=== PATIENT | male | born 1965 | race Caucasian/White ===

== ENCOUNTER 2018-07-09 00:27 | Observation (INO) ==
--- NOTE | 2018-07-09 01:12 | XR ---
EXAM DATE: 07/09/2018 1:05 AM EST AGE/SEX: 52 years / Male INDICATIONS: Chest pressure and palpitations today. CLINICAL DATA: This is the patient's initial encounter. Patient reports that signs and symptoms have been present for 1 day and indicates a pain score of 2/10. MEDICAL/SURGICAL HISTORY: None. None. COMPARISON: No prior exams available for comparison. FINDINGS: A single AP view of the chest demonstrates the lungs to be symmetrically aerated without evidence of mass, infiltrate or effusion. The cardiomediastinal contours are unremarkable. Osseous structures a re intact. CONCLUSION: Negative examination. Electronically signed by: Mik Adame MD 07/09/2018 1:10 AM EST
[2018-07-09 01:14] LABS: Baso % (Auto) 0.5 % (0.0-2.0); Eos # (Auto) 0.1 th/mm3 (0.0-0.4); Eos % (Auto) 1.3 % (0.0-4.0); Hematocrit 43.9 % (39.0-51.0); Hemoglobin 14.9 gm/dL (13.0-17.0); Lymph # (Auto) 2.7 th/mm3 (1.0-4.8); Lymph % (Auto) 32.6 % (9.0-44.0); Mean Corpuscular HGB Conc 33.9 % (32.0-36.0); Mean Corpuscular Hemoglobin 29.6 pg (27.0-34.0); Mean Corpuscular Volume 87.4 fL (80.0-100.0); Mean Platelet Volume 7.7 fL (7.0-11.0); Mono # (Auto) 0.8 th/mm3 (0.0-0.9); Mono % (Auto) 9.1 % (0.0-8.0); Neut # (Auto) 4.7 th/mm3 (1.8-7.7); Neut % (Auto) 56.5 % (16.0-70.0); Platelet Count 226 th/mm3 (150-450); Red Blood Count 5.02 mil/mm3 (4.50-5.90); Red Cell Distribution Width 13.4 % (11.6-17.2); White Blood Count 8.4 th/mm3 (4.0-11.0)
[2018-07-09 01:35] LABS: Alkaline Phosphatase 83 U/L (45-117); Total Protein 8.1 g/dL (6.4-8.2)
[2018-07-09 01:36] LABS: Alanine Aminotransferase 108 U/L (12-78); Albumin 4.1 g/dL (3.4-5.0); Anion Gap 5 meq/L (5-15); Aspartate Aminotransferase 94 U/L (15-37); Blood Urea Nitrogen 18 mg/dL (7-18); Calcium 8.9 mg/dL (8.5-10.1); Carbon Dioxide 29.8 meq/L (21.0-32.0); Chloride 106 meq/L (98-107); Glomerular Filtration Rate 55 mL/min (>89); Glucose,Random 121 mg/dL (74-106); Potassium 3.6 meq/L (3.5-5.1); Sodium 141 meq/L (136-145)
[2018-07-09 01:57] LABS: Bilirubin,Urine Negative (Negative); Clarity,Urine Clear (Clear); Color,Urine Straw (Yellw/Straw); Glucose,Urine (UA) Negative (Negative); Leukocyte Esterase,Urine Negative (Negative); Nitrite,Urine Negative (Negative); Specific Gravity,Urine 1.003 (1.002-1.035)
--- NOTE | 2018-07-09 03:06 | ED ---
HPI General Chief Complaint: Arrhythmia / Palpitations Stated Complaint: Chest Pians/Chills Time Seen by Provider: 07/09/18 00:59 Source: patient and family () Mode of arrival: ambulatory Limitations: no limitations History of Present Illness HPI narrative: 52-year-old male came to the emergency room with history of sudden onset palpitation when he woke up at midnight to go to the bathroom. He also started getting chills and was shaking. He asked his to take him to the emergency room. The symptoms lasted for 20 minutes and resolved by the time they came to the emergency room. No history of dizziness or lightheadedness. No history of syncopal episode or shortness of breath. Patient has never experienced this kind of symptom before. He had slight chest discomfort with the symptoms. Patient is not on any medications on a daily basis but occasionally takes Motrin and Claritin-D. Patient had taken Claritin- D yesterday. Vital signs are stable currently. Patient is chest pain-free. No aggravating or relieving symptoms identified. Related Data Home Medications Medication Instructions Recorded Confirmed No Known Home Medications 07/09/18 07/09/18 Allergies Allergy/AdvReac Type Severity Reaction Status Date / Time No Known Allergies Allergy Verified 07/09/18 00:33 Review of Systems ROS: all other systems reviewed are negative [facility] Medical History Medical History Patient denies medical problems (Acute) Surgical History Surgical History No history of previous surgery (Acute) Social History Social History Substance History: No History of Abuse Second Hand Smoke Exposure: No Smoking Status: Never smoker How Often Do You Have a Drink Containing Alcohol: 2 to 3 times a week Recent Travel in [facility] within the Last 8 Weeks: No Recent Out of Country Travel within the Last 8 Weeks: No Immunization History Tetanus Immunization: >5 Years Exam Narrative Exam Narrative: GENERAL: Awake, alert, no obvious distress SKIN: Focused skin assessment warm/dry. HEAD: Atraumatic. Normocephalic. EYES: Pupils equal and round. No scleral icterus. No injection or drainage. ENT: No nasal bleeding or discharge. Mucous membranes pink and moist. NECK: Trachea midline. No JVD. CARDIOVASCULAR: Regular rate and rhythm. No murmur appreciated. RESPIRATORY: No accessory muscle use. Clear to auscultation. Breath sounds equal bilaterally. GASTROINTESTINAL: Abdomen soft, non-tender, nondistended. Hepatic and splenic margins not palpable. MUSCULOSKELETAL: No obvious deformities. No clubbing. No cyanosis. No edema. NEUROLOGICAL: Awake and alert. No obvious cranial nerve deficits. Motor grossly within normal limits. Normal speech. PSYCHIATRIC: Appropriate mood and affect; insight and judgment normal. Course Initial Documented Vital Signs Temperature 98.2 F 07/09/18 00:33 Pulse Rate 81 07/09/18 00:33 Respiratory Rate 16 07/09/18 00:33 Blood Pressure 158/90 H 07/09/18 00:33 Pulse Oximetry 100 07/09/18 00:33 Last Documented Vital Signs Temperature 98.0 F 07/09/18 08:00 Pulse Rate 69 07/09/18 08:00 Respiratory Rate 16 07/09/18 08:00 Blood Pressure 122/84 07/09/18 08:00 Pulse Oximetry 99 07/09/18 08:00 Medical Decision Making MDM Narrative Medical decision making narrative: 3:04 AM blood test results are back and within normal limits. 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 I will admit the patient to the chest pain center so that he can be evaluated for his chest pressure that was associated with the arrhythmia and ACS can be ruled out. Medical Screen Exam Complete: Yes Emergency Medical Condition: Yes Lab Data Result diagrams: 07/09/18 00:50 07/09/18 00:50 Lab Results 07/09/18 07/09/18 07/09/18 Range/Units 00:50 00:50 01:30 WBC 8.4 (4.0-11.0) th/mm3 RBC 5.02 (4.50-5.90) mil/mm3 Hgb 14.9 (13.0-17.0) gm/dL Hct 43.9 (39.0-51.0) % MCV 87.4 (80.0-100.0) fL MCH 29.6 (27.0-34.0) pg MCHC 33.9 (32.0-36.0) % RDW 13.4 (11.6-17.2) % Plt Count 226 (150-450) th/mm3 MPV 7.7 (7.0-11.0) fL Neut % (Auto) 56.5 (16.0-70.0) % Lymph % (Auto) 32.6 (9.0-44.0) % [place] % (Auto) 9.1 H (0.0-8.0) % Eos % (Auto) 1.3 (0.0-4.0) % Baso % (Auto) 0.5 (0.0-2.0) % Neut # (Auto) 4.7 (1.8-7.7) th/mm3 Lymph # (Auto) 2.7 (1.0-4.8) th/mm3 [place] # (Auto) 0.8 (0.0-0.9) th/mm3 Eos # (Auto) 0.1 (0.0-0.4) th/mm3 Baso # (Auto) 0.0 (0.0-0.2) th/mm3 WBC Differential . Differential Comment Auto diff final Sodium 141 (136-145) meq/L Potassium 3.6 (3.5-5.1) meq/L Chloride 106 (98-107) meq/L Carbon Dioxide 29.8 (21.0-32.0) meq/L Anion Gap 5 (5-15) meq/L BUN 18 (7-18) mg/dL Creatinine 1.37 H (0.60-1.30) mg/dL Estimated GFR 55 L (>89) mL/min Random Glucose 121 H (74-106) mg/dL Calcium 8.9 (8.5-10.1) mg/dL Total Bilirubin 0.3 (0.2-1.0) mg/dL AST 94 H (15-37) U/L ALT 108 H (12-78) U/L Alkaline Phosphatase 83 (45-117) U/L Total Creatine Kinase (39-308) U/L Troponin I Less than 0.02 L (0.02-0.05) ng/mL Total Protein 8.1 (6.4-8.2) g/dL Albumin 4.1 (3.4-5.0) g/dL Urine Color Straw (Yellw/Straw) Urine Clarity Clear (Clear) Urine pH 6.0 (5.0-8.5) Ur Specific [place] 1.003 (1.002-1.035) Urine Protein Negative (Neg-Trace) mg/dL Urine Glucose (UA) Negative (Negative) mg/dL Urine Ketones Negative (Negative) mg/dL Urine Occult Blood Negative (Negative) Urine Nitrate Negative (Negative) Urine Bilirubin Negative (Negative) Urine Urobilinogen Less than 2 (Less than 2) mg/dL Ur Leukocyte Esterase Negative (Negative) Urine WBC Less than 1 (0-5) /hpf Micro UA Comment Culture not ind Ur Microscopic Review Not Reportable Urine Culture Comments Culture not ind 07/09/18 07/09/18 Range/Units 05:55 08:03 WBC (4.0-11.0) th/mm3 RBC (4.50-5.90) mil/mm3 Hgb (13.0-17.0) gm/dL Hct (39.0-51.0) % MCV (80.0-100.0) fL MCH (27.0-34.0) pg MCHC (32.0-36.0) % RDW (11.6-17.2) % Plt Count (150-450) th/mm3 MPV (7.0-11.0) fL Neut % (Auto) (16.0-70.0) % Lymph % (Auto) (9.0-44.0) % [place] % (Auto) (0.0-8.0) % Eos % (Auto) (0.0-4.0) % Baso % (Auto) (0.0-2.0) % Neut # (Auto) (1.8-7.7) th/mm3 Lymph # (Auto) (1.0-4.8) th/mm3 [place] # (Auto) (0.0-0.9) th/mm3 Eos # (Auto) (0.0-0.4) th/mm3 Baso # (Auto) (0.0-0.2) th/mm3 WBC Differential Differential Comment Sodium (136-145) meq/L Potassium (3.5-5.1) meq/L Chloride (98-107) meq/L Carbon Dioxide (21.0-32.0) meq/L Anion Gap (5-15) meq/L BUN (7-18) mg/dL Creatinine (0.60-1.30) mg/dL Estimated GFR (>89) mL/min Random Glucose (74-106) mg/dL Calcium (8.5-10.1) mg/dL Total Bilirubin (0.2-1.0) mg/dL AST (15-37) U/L ALT (12-78) U/L Alkaline Phosphatase (45-117) U/L Total Creatine Kinase 102 138 (39-308) U/L Troponin I 0.06 H 0.07 H (0.02-0.05) ng/mL Total Protein (6.4-8.2) g/dL Albumin (3.4-5.0) g/dL Urine Color (Yellw/Straw) Urine Clarity (Clear) Urine pH (5.0-8.5) Ur Specific [place] (1.002-1.035) Urine Protein (Neg-Trace) mg/dL Urine Glucose (UA) (Negative) mg/dL Urine Ketones (Negative) mg/dL Urine Occult Blood (Negative) Urine Nitrate (Negative) Urine Bilirubin (Negative) Urine Urobilinogen (Less than 2) mg/dL Ur Leukocyte Esterase (Negative) Urine WBC (0-5) /hpf Micro UA Comment Ur Microscopic Review Urine Culture Comments Imaging Data Radiologist's impression: Chest X-Ray 07/09/18 00:49 CONCLUSION: Negative examination. ECG Data Attestation: I personally reviewed and interpreted this ECG as follows: Interpretation: Twelve-lead EKG was reviewed by me. Normal sinus rhythm, normal axis, nonspecific ST-T wave changes. Heart rate of 81 bpm. Discharge Plan Discharge Disposition Patient Disposition: 30 Still Patient Discharge Condition Condition: Stable Discharge Order Discharge Orders: Discharge Order (Routine); Ordered 07/09/18 Ordered By: Chuck Mendoza ED Use Only Admit Order (Routine); Ordered 07/09/18 Ordered By: Sunshine Bautista Physicians Team ED Provider: Sunshine Bautista Primary Care Provider: Primary Care Mariama Dennis Attending Provider: Harshal Trujillo Status ED Status: Left Department Discharge Information Discharge Date/Time: 07/09/18 06:08
[2018-07-09 06:07] VITALS: PULSE 69; O2SAT 99
[2018-07-09 07:16] LABS: Troponin I 0.06 ng/mL (0.02-0.05)
--- NOTE | 2018-07-09 08:09 | P.HPCA ---
History of Present Illness Primary Care Physician: No Primary Care Physician Chief Complaint: Chest pain and palpitations History of Present Illness: This is a 52-year-old male without history of hypertension, hyperlipidemia, diabetes, and CAD that presents to ED with a client of palpitations and chest discomfort. Patient states that he had woken up and was going to the restroom. While urinating he developed sensation of heart beating rapidly which she describes as racing as well as having a discomfort in his chest. Symptoms lasted about 20 minutes. Describes the discomfort as mild. He has his to check him and she did not count his heart rate but states that it was fast. Complained of diaphoresis and shortness of breath. He has not had this before. States he is active. Plays basketball on Sundays and is never had discomforts or the palpitations before. Denies family history of CAD. Patient denies history of hypertension, hyperlipidemia, diabetes, and CAD. Patient is a non-smoker. - Diagnosis (1) Chest pain (2) Palpitations (3) Elevated troponin Review of Systems General: Patient denies fevers, chills, and recent travel. HEENT: Patient denies headache, sore throat, difficulty swallowing. Cardiovascular: [place] as if heart was racing. He was diaphoretic. Has the chest discomfort as mentioned above. Denies sensation of heart beating irregularly. No syncope. Respiratory: He was short of breath. Denies inspirational chest discomfort. Denies coughing wheezing or hemoptysis. GI: Patient denies nausea, vomiting, diarrhea, abdominal pain, bloody stools. Musculoskeletal: Patient denies joint pain or edema. Denies calf pain or edema. Neurovascular: Patient denies numbness, tingling, weakness in extremities. Denies headache. Endocrine: Denies polyuria and polydipsia. Hematologic: Denies easy bruising. Skin: Denies rash or itching. PMFSH - History History Provided By: Patient - Medical History Medical History: Medical History (Last Reviewed 07/09/18 @ 03:04 by Sunshine Bautista MD) Patient denies medical problems - Surgical History Surgical History: Surgical History (Last Reviewed 07/09/18 @ 03:04 by Sunshine Bautista MD) No history of previous surgery - Tobacco History Second Hand Smoke Exposure: No Smoking Status: Never smoker - Alcohol History How Often Do You Have a Drink Containing Alcohol: 2 to 3 times a week - Substance Use History Substance History: No History of Abuse - Travel History Recent Travel in the [place] Within the Last 8 Weeks: No Recent Travel Out of the Country Within the Last 8 Weeks: No - Immunization History Tetanus Immunization: >5 Years Medications and Allergies Active Medications: Active Medications Sodium Chloride (Ns Flush) 2 ml IV.FLUSH BID SANDY Sodium Chloride (Ns Flush) 2 ml IV.FLUSH PRN PRN PRN Reason: FLUSH AFTER USING IV ACCESS Allergies Allergy/AdvReac Type Severity Reaction Status Date / Time No Known Allergies Allergy Verified 07/09/18 00:33 Home Medications Medication Instructions Recorded Confirmed Type No Known Home Medications 07/09/18 07/09/18 History Exam Vital signs: Vital Signs 07/09/18 00:33 07/09/18 06:06 Temperature 98.2 F 98.1 F Pulse Rate 81 63 Respiratory Rate 16 18 Blood Pressure 158/90 H 142/93 H Pulse Oximetry 100 99 Intake & Output 07/08/18 07/09/18 07/09/18 18:59 06:59 18:59 Weight 97.522 kg Other: Date of Last Bowel Movement 07/08/18 Weight On Admission 97.522 kg Narrative: GENERAL: This is a well-nourished, well-developed patient, in no apparent distress. Patient speaks in clear complete sentences. Patient is pleasant. HEENT: Head is atraumatic and normocephalic. Neck is supple without lymphadenopathy and trachea is midline. No JVD or carotid bruits. CARDIOVASCULAR: Regular rate and rhythm without murmurs, gallops, or rubs. RESPIRATORY: Clear to auscultation. Breath sounds equal bilaterally. No wheezes , rales, or rhonchi. Chest wall is nontender. No use of accessory muscles. GASTROINTESTINAL: Abdomen is nontender, nondistended. Abdomen soft. No obvious pulsatile mass or bruit. No CVA tenderness. Strong femoral pulses bilaterally. Normal bowel sounds in all quadrants. MUSCULOSKELETAL: Patient is moving upper and lower extremities freely. No calf tenderness or edema, no Homans sign. Strong pulses in upper and lower extremities. NEUROLOGICAL: Patient is alert and oriented. Cranial nerves 2-12 are grossly intact. No focal deficits and speech is clear. SKIN: No rash and turgor is normal. Results 07/09/18 00:50 07/09/18 00:50 Cardiac Enzymes 07/09/18 07/09/18 Range/Units 00:50 05:55 AST 94 H (15-37) U/L Troponin I Less than 0.02 L 0.06 H (0.02-0.05) ng/mL CBC 07/09/18 Range/Units 00:50 WBC 8.4 (4.0-11.0) th/mm3 RBC 5.02 (4.50-5.90) mil/mm3 Hgb 14.9 (13.0-17.0) gm/dL Hct 43.9 (39.0-51.0) % Plt Count 226 (150-450) th/mm3 Neut # (Auto) 4.7 (1.8-7.7) th/mm3 Lymph # (Auto) 2.7 (1.0-4.8) th/mm3 [place] # (Auto) 0.8 (0.0-0.9) th/mm3 Eos # (Auto) 0.1 (0.0-0.4) th/mm3 Baso # (Auto) 0.0 (0.0-0.2) th/mm3 Comprehensive Metabolic Panel 07/09/18 Range/Units 00:50 Sodium 141 (136-145) meq/L Potassium 3.6 (3.5-5.1) meq/L Chloride 106 (98-107) meq/L Carbon Dioxide 29.8 (21.0-32.0) meq/L BUN 18 (7-18) mg/dL Creatinine 1.37 H (0.60-1.30) mg/dL Calcium 8.9 (8.5-10.1) mg/dL AST 94 H (15-37) U/L ALT 108 H (12-78) U/L Alkaline Phosphatase 83 (45-117) U/L Total Protein 8.1 (6.4-8.2) g/dL Albumin 4.1 (3.4-5.0) g/dL Intake and Output 07/08/18 07/09/18 07/09/18 22:59 06:59 14:59 Other: Date of Last Bowel Movement 07/08/18 Weight 97.522 kg Weight On Admission 97.522 kg - Imaging and Cardiology Imaging: Impressions Chest X-Ray 07/09/18 00:49 CONCLUSION: Negative examination. EKG interpretations - EKG EKG shows: sinus rhythm (EKG is a sinus rhythm without ST segment depressions or elevation.) Caprini VTE Risk Assessment Caprini VTE Risk Assessment: No/Low Risk (score <= 1) Caprini Risk Assessment Model: Point Value = 1 Point Value = 2 Point Value = 3 Point Value = 5 Age 41-60 Minor surgery BMI > 25 kg/m2 Swollen legs Varicose veins or History of unexplained or recurrent spontaneous Oral contraceptives or hormone replacement Sepsis (< 1 month) Serious lung disease, including pneumonia (< 1 month) Abnormal pulmonary function Acute myocardial infarction Congestive heart failure (< 1 month) History of inflammatory bowel disease Medical patient at bed rest Age 61-74 Arthroscopic surgery Major open surgery (> 45 min) Laparoscopic surgery (> 45 min) Malignancy Confined to bed (> 72 hours) Immobilizing plaster cast Central venous access Age >= 75 History of VTE Family history of VTE Factor V Leiden Prothrombin [id number] Lupus anticoagulant Anticardiolipin antibodies Elevated serum homocysteine Heparin-induced thrombocytopenia Other congenital or acquired thrombophilia Stroke (< 1 month) Elective arthroplasty Hip, pelvis, or leg fracture Acute spinal cord injury (< 1 month) Prophylaxis Regimen: Total Risk Factor Score Risk Level Prophylaxis Regimen 0-1 Low Early ambulation 2 Moderate Order ONE of the following: *Sequential Compression Device (SCD) *Heparin 5000 units SQ BID 3-4 Higher Order ONE of the following medications: *Heparin 5000 units SQ TID *Enoxaparin/Lovenox 40 mg SQ daily (WT < 150 kg, CrCl > 30 mL/min) *Enoxaparin/Lovenox 30 mg SQ daily (WT < 150 kg, CrCl > 10-29 mL/min) *Enoxaparin/Lovenox 30 mg SQ BID (WT < 150 kg, CrCl > 30 mL/min) AND/OR *Sequential Compression Device (SCD) 5 or more Highest Order ONE of the following medications: *Heparin 5000 units SQ TID (Preferred with Epidurals) *Enoxaparin/Lovenox 40 mg SQ daily (WT < 150 kg, CrCl > 30 mL/min) *Enoxaparin/Lovenox 30 mg SQ daily (WT < 150 kg, CrCl > 10-29 mL/min) *Enoxaparin/Lovenox 30 mg SQ BID (WT < 150 kg, CrCl > 30 mL/min) AND *Sequential Compression Device (SCD) Assessment and Plan - Assessment (1) Chest pain Code(s): R07.9 - Chest pain, unspecified Status: Acute (2) Palpitations Code(s): R00.2 - Palpitations Status: Acute (3) Elevated troponin Code(s): R74.8 - Abnormal levels of other serum enzymes Status: Acute - Plan * Chest pain: Patient has been seen by Dr. Jay Grider of cardiology and chest pain center. Second troponin did elevate a little to 0.06 which is indeterminant. Could be related to his palpitations which might have been an episode of SVT. He will undergo a Juan protocol ETT and if nonischemic will be discharged home. If it recurs he should discuss this with his physician or come to the ED but will need at that point likely Holter monitor. Patient is follow-up with his PCP after discharge and return to ED for interval issues. * Palpitations: He has been in sinus rhythm since being on the monitor. He should return to ED if it recurs, would likely need Holter monitor that situation. * Elevated troponin: This was discussed with Dr. Jay Grider. Likely related to the palpitations that he was describing as a racing heartbeat. Will check stress test for ischemia. Patient is stable at this time. He is agreeable to this plan. H&P: Quality - VTE Deep Vein Thrombosis/Pulmonary Embolism Present on Admission: No
[2018-07-09 08:21] VITALS: BP 122/84; RESP 16; TEMP 98
[2018-07-09 08:43] LABS: Troponin I 0.07 ng/mL (0.02-0.05)
--- NOTE | 2018-07-09 15:45 | ECG ---
Date Performed: 07/09/2018 Time Performed: 05:57:43 PTAGE: 52 years EKG: Sinus rhythm WITH SINUS ARRHYTHMIA INCOMPLETE RIGHT BUNDLE BRANCH BLOCK EARLY REPOLARIZATION BORDERLINE ECG PREVIOUS TRACING : 07/09/2018 00.45 Since previous tracing, no significant change noted DOCTOR: Jay Grider Interpretating Date/Time 07/09/2018 15:44:41
--- NOTE | 2018-07-09 15:45 | ECG ---
Date Performed: 07/09/2018 Time Performed: 00:45:38 PTAGE: 52 years EKG: Sinus rhythm RIGHT BUNDLE BRANCH BLOCK ABNORMAL ECG NO PREVIOUS TRACING DOCTOR: Jay Grider Interpretating Date/Time 07/09/2018 15:45:29
--- NOTE | 2018-07-09 15:50 | TR ---
Date Performed: 07/09/2018 Time Performed: 09:14:19 DOCTOR: Jay Grider DRUG LIST: CLINICAL HISTORY: REASON FOR TEST: REASON FOR ENDING: OBSERVATION: CONCLUSION: FRANKIE PROTOCOL. NO CP. TEST STOPPED AFTER EXCEEDING GOAL HR SECONDARY TO SOB AND LEG FATIGUE.Maximum GP=956 % Max HR Flgryqev=208.0% Total Exercise Time=10:01 COMMENTS: Patient exercised using the Frankie protocol. No electrocardiographic changes were seen to suggest ischemia. Hemodynamic response to exercise was normal. No significant arrhythmia was prese nt.
== END 2018-07-09 11:05 | disposition home or self-care (01) ==
LOC: NEDA 00:27 → NEPE 00:27 → NEDA 06:08 → NEPGCP 06:21
PROVIDERS: ADMIT Internal Medicine Interventional Cardiology; ATTEND Internal Medicine Interventional Cardiology